=== PATIENT | female | born 1980 | race Two or more races ===

== ENCOUNTER 2025-08-05 13:34 | Outpatient (CLI) | payer BC ==
[2025-08-05 14:46] LABS: Hematocrit 45.2 % (36.0-46.0); Hemoglobin 15.8 g/dL (12.2-16.2); Mean Corpuscular Hemoglobin 32.0 pg (28.0-32.0); Mean Corpuscular Volume 91.7 fL (80.0-100.0); Nucleated Red Blood Cells % 0.0 %
[2025-08-05 15:28] LABS: Alanine Aminotransferase 23 U/L (7-40); Anion Gap 10 (5-15); BUN/Creatinine Ratio 9.6 (10.0-20.0); Blood Urea Nitrogen 10 mg/dL (9-23); Calcium 9.8 mg/dL (8.7-10.4); Carbon Dioxide 26 mmol/L (20-31); Chloride 106 mmol/L (98-107); Glucose 79 mg/dL (74-106); Potassium 4.4 mmol/L (3.5-5.1); Sodium 142 mmol/L (136-145)
[2025-08-05 15:29] LABS: Cholesterol 161 mg/dL (< 200); HDL Cholesterol 52 mg/dL (40-59); Triglycerides 171 mg/dL (< 150)
[2025-08-06 04:07] LABS: Hematocrit 47.3 % (34.0-46.6); Hemoglobin 16.0 g/dL (11.1-15.9); MCH 31.9 pg (26.6-33.0); MCHC 33.8 g/dL (31.5-35.7); MCV 94 fL (79-97); RBC 5.01 x10E6/uL (3.77-5.28); RDW 12.1 % (11.7-15.4); WBC 5.8 x10E3/uL (3.4-10.8)
[2025-08-06 10:07] LABS: CD4/CD8 Ratio 0.39 (0.92-3.72)
== END 2025-08-05 17:00 | disposition home or self-care (01) ==
LOC: LAB 13:34
PROVIDERS: ATTEND Specialist
DX: E55.9 Vitamin D deficiency, unspecified (principal); Z13.220 Encounter for screening for lipoid disorders; Z13.1 Encounter for screening for diabetes mellitus; Z12.11 Encounter for screening for malignant neoplasm of colon; Z00.00 Encounter for general adult medical examination without abnormal findings
CPT/HCPCS: 36415; 80048; 80061; 82306; 82607; 83036; 84436; 84443; 84450; 84460; 85025; 86360; 86703; 87389